=== PATIENT | female | born 1960 | race Caucasian/White ===

== ENCOUNTER 2016-10-24 16:00 | Emergency (ER) | payer MEDICAID ==
[~2016-10-24] VITALS: Wt 66.0 kg
[2016-10-24] MEDS ORDERED: morphine 4 MG/ML VIAL IV STA (16:42)
[2016-10-24] MEDS ORDERED: ONDANSETRON 4 MG INJ IV STA (16:42)
[2016-10-24] MEDS ORDERED: HYD25 PO (16:59)
[2016-10-24] MEDS ORDERED: LABETALOL HCL 20MG INJ IV ONE (17:00)
--- NOTE | 2016-10-24 17:07 | RADRPT ---
PROCEDURE: XR Chest. CLINICAL INDICATION: Hypertension TECHNIQUE: Chest AP portable COMPARISON: 06/15/2009 FINDINGS: The mediastinal structures are unremarkable. There is calcification of the thoracic aorta (consiste nt with atherosclerosis). The heart is normal in size and configuration. The pulmonary vascularity is normal. The lung younger are unremarkable. No consolidation is identified. The pleural spaces are unremarkable. The osseous structures are unremarkable. IMPRESSION: Calcification of the thoracic aorta (consistent with atherosclerosis). No evidence for active cardiopulmonary disease. RPTAT: HGDB .Yonathan Foster MD, MD Date Time Electronically viewed and signed by .Yonathan Foster MD, on 10/24/2016 17:06 .B/
[2016-10-24 17:27] LABS: BASOPHILS % 0.4 % (0.0-2.0); EOSINOPHILS # 0.1 10^3/ul (0.0-0.5); HEMATOCRIT 40.8 % (37.0-47.0); HEMOGLOBIN 13.6 g/dl (12.0-16.0); LYMPHOCYTES % 27.2 % (15.0-51.0); MEAN CORPUSCULAR HGB CONC 33.4 g/dl (32.0-37.0); MEAN CORPUSCULAR VOLUME 86.9 fl (82.0-101.0); MEAN PLATELET VOLUME 8.6 fl (7.4-10.4); MONOCYTE # 0.4 10^3/ul (0.3-0.9); MONOCYTES % 5.8 % (0.0-11.0); NEUTROPHIL # 4.8 10^3/ul (1.6-7.5); NEUTROPHILS % 65.6 % (39.0-77.0); PLATELET COUNT 221 10^3/UL (140-440); RED CELL DISTRIBUTION WIDTH 13.5 % (11.5-14.5); UNCORRECTED WBC 7.3 10^3/ul (4.8-10.8); WHITE BLOOD COUNT 7.3 10^3/ul (4.8-10.8)
[2016-10-24 17:28] LABS: CONDITION 1
[2016-10-24 17:37] LABS: INR 0.9; PROTIME 12.1 Sec (12.2-14.2); PT RATIO 0.9
[2016-10-24 17:39] LABS: CHLORIDE 102 mmol/L (97-110); POTASSIUM 3.4 mmol/L (3.5-5.1); SODIUM 144 mmol/L (135-144)
[2016-10-24 17:42] LABS: ANION GAP 14 (8-16); BLOOD UREA NITROGEN 18 mg/dl (7-20); CARBON DIOXIDE 31 mmol/L (21-31); CREATININE 0.59 mg/dl (0.44-1.00)
[2016-10-24 17:43] LABS: CALCIUM 9.4 mg/dl (8.4-10.2); GLUCOSE 105 mg/dl (70-220)
[2016-10-24] MEDS ORDERED: IOHEXOL 100 ML ONE (17:51)
[2016-10-24] MEDS ORDERED: SOD CHLORIDE 0.9% 100 ML ONE (17:51)
[2016-10-24 17:57] LABS: TROPONIN-I < 0.012 ng/ml (0.00-0.12)
--- NOTE | 2016-10-24 18:52 | RADRPT ---
PROCEDURE: CTA head and neck CLINICAL INDICATION: Hypertension, pain. TECHNIQUE: The study was performed utilizing multidetector CT scanner. Direct thin section axial s ections were obtained through the head and neck after the uneventful administration of 95 cc of 85 O mnipaque-350 nonionic intravenous contrast material. Coronal and sagittal as well as maximal intens ity projection reformations were obtained. 3-D images were made. The images were reviewed on a PACS workstation. One or more the following does reduction techniques were utilized: Automated exposure control, adjustment of themA/ or kV according to patient's size, or use of iterative reconstruction technique. The total CTDIvol is 19.8, 14.99 mGy and the DLP is 580.6 mGy-cm. COMPARISON: No prior studies are available for comparison. FINDINGS: CTA NECK: The origins of the great vessels off the aortic arch are patent without significant stenosis. The c ommon carotid and internal carotid arteries are patent without significant stenosis by NASCET criter ia. Direct measurements of vessel diameters was made in reference to measurements of the distal inte rnal carotid artery diameter. The vertebral arteries are also patent without high-grade stenosis. CTA BRAIN: The internal carotid arteries are patent without significant stenosis. The proximal middle cerebral arteries and anterior cerebral arteries are patent without significant stenosis. There is predomin ant origin of left posterior cerebral artery with hypoplastic left P1 segment. The intracrani al vertebral arteries, basilar artery, and posterior cerebral arteries are also unremarkable without significant stenosis. No aneurysm or vascular malformation is identified. There is a 10 mm irregularly enhancing left thyroid nodule is noted. IMPRESSION: 1. Patent major intracranial and neck arteries. No CTA evidence of dissection or aneurysm. 2. A 10 mm irregularly enhancing left thyroid nodule, correlate with thyroid ultrasound as clinical ly warranted. RPTAT: HFN .Elisa Matos MD, MD Date Time Electronically viewed and signed by .Elisa Matos MD, MD on 10/24/2016 18:52 .N/
--- NOTE | 2016-10-24 19:27 | ERD ---
ER Documentation Chief Complaint Date/Time DATE: 10/24/16 TIME: 19:26 Chief Complaint HEADACHE FOR A FEW WKS. RIGHT CAROTID AREA PULSATING MASS. MILD PAIN NOTED HPI Patient is a 56-year-old female with hypertension who presents with right-sided neck pain and headache. She has high blood pressure. She had a pulsating mass in her right neck. She has had 2 weeks of symptoms. Today the symptoms were worse. She has had no treatment as of yet. She is taking blood pressure medicines currently. Upon review of old medical records the patient one previous visit to the ER in 2008. She does not remember the name of her primary doctor. ROS All systems reviewed and are negative except as per history of present illness. Medications Home Meds Reported Medications Hydrochlorothiazide* (Hydrochlorothiazide*) 25 Mg Tab, 25 MG PO DAILY, #30 TAB 10/24/16 Allergies Allergies: Coded Allergies: No Known Allergy (Verified , 10/24/16) PMhx/Soc Medical and Surgical Hx: pt denies Medical Hx, pt denies Surgical Hx History of Surgery: No Anesthesia Reaction: No Hx Neurological Disorder: No Hx Respiratory Disorders: No Hx Cardiac Disorders: Yes (htn) Hx Psychiatric Problems: No Hx Miscellaneous Medical Probl: No Hx Alcohol Use: No Hx Substance Use: No Hx Tobacco Use: No Smoking Status: Never smoker FmHx Family History: diabetes Physical Exam Vitals Vital Signs Date Time Temp Pulse Resp B/P Pulse Ox O2 Delivery O2 Flow Rate FiO2 10/24/16 19:40 62 18 139/93 100 Room Air 10/24/16 17:30 60 18 142/89 100 Room Air 10/24/16 17:00 Nasal Cannula 2 10/24/16 16:04 98.7 70 20 227/107 100 Physical Exam Const: No acute distress Head: Atraumatic Eyes: Normal Conjunctiva ENT: Normal External Ears, Nose and Mouth. Neck: Full range of motion..~ No meningismus. There is a pulsating mass at the right neck without bruit Resp: Clear to auscultation bilaterally Cardio: Regular rate and rhythm, no murmurs Abd: Soft, non tender, non distended. Normal bowel sounds Skin: No petechiae or rashes Back: No midline or flank tenderness Ext: No cyanosis, or edema Neur: Awake and alert Psych: Normal Mood and Affect Result Diagram: 10/24/16 1710 10/24/16 1710 Results 24 hrs Laboratory Tests Test 10/24/16 17:10 Activated Partial Thromboplast Time 30.0Sec Anion Gap 14 Basophils # 0.010^3/ul Basophils % 0.4% Blood Urea Nitrogen 18mg/dl Calcium Level 9.4mg/dl Carbon Dioxide Level 31mmol/L Chloride Level 102mmol/L Creatinine 0.59mg/dl Eosinophils # 0.110^3/ul Eosinophils % 1.0% Glucose Level 105mg/dl Hematocrit 40.8% Hemoglobin 13.6g/dl INR International Normalized Ratio 0.90 Lymphocytes # 2.010^3/ul Lymphocytes % 27.2% Mean Corpuscular Hemoglobin 29.0pg Mean Corpuscular Hemoglobin Concent 33.4g/dl Mean Corpuscular Volume 86.9fl Mean Platelet Volume 8.6fl Monocytes # 0.410^3/ul Monocytes % 5.8% Neutrophils # 4.810^3/ul Neutrophils % 65.6% Nucleated Red Blood Cells # 0.010^3/ul Nucleated Red Blood Cells % 0.0/100WBC Platelet Count 60183^3/UL Potassium Level 3.4mmol/L Prothrombin Time 12.1Sec Prothrombin Time Ratio 0.9 Red Blood Count 4.7010^6/ul Red Cell Distribution Width 13.5% Sodium Level 144mmol/L Troponin I < 0.012ng/ml White Blood Count 7.310^3/ul Current Medications Medications (Trade) Dose Ordered Sig/Marina Route PRN Reason Start Time Stop Time Status Last Admin Dose Admin Ondansetron HCl (Zofran Inj) 4 mg ONCE STAT IV 10/24/16 16:42 10/24/16 16:44 DC 10/24/16 17:31 Morphine Sulfate (morphine) 4 mg ONCE STAT IV 10/24/16 16:42 10/24/16 16:44 DC 10/24/16 17:32 Labetalol HCl (Labetalol) 20 mg ONCE ONCE IV 10/24/16 17:00 10/24/16 17:01 DC IV Flush 10 ml 10 ml STK-MED ONCE .ROUTE 10/24/16 17:51 10/24/16 17:52 DC 10/24/16 18:23 Sodium Chloride 100 ml @ ud STK-MED ONCE .ROUTE 10/24/16 17:51 10/24/16 17:52 DC 10/24/16 18:23 Iohexol (Omnipaque) 100 ml @ [facility] ONCE .ROUTE 10/24/16 17:51 10/24/16 17:52 DC 10/24/16 18:23 Procedures/MDM EKG read by me: Rate/Rhythm: Regular rate and rhythm at a rate of 65 Intervals: Normal Impression: No evidence of ischemia or arrhythmia CT of the head and neck negative per radiology. Patient is a 56-year-old female with hypertension who presents with headache and right-sided neck pain as well as pulsating mass in the right neck. CTA was done to rule out carotid artery aneurysm and this was negative. I believe this may be variant anatomy with a carotid it is visible at the right neck. The patient is otherwise well-appearing and has no neurologic findings. I believe outpatient management is appropriate at this point. I did speak with Dr. Leal and we felt that outpatient management is now appropriate. The patient can return for any worsening symptoms. Her blood pressure was much improved with pain medicines. At this point I doubt stroke, intracranial hemorrhage, intracranial mass, or carotid artery aneurysm or dissection. Critical Care: Time: 35 minutes excluding all billable procedures. Treatments/Evaluations: Close monitoring and treatment of unstable vital signs, cardiorespiratory, and neurologic status, while maintaining tight balance of fluid, respiratory, and cardiac interventions. Departure Diagnosis: Primary Impression: Hypertension Hypertension type: essential hypertension Qualified Code: I10 - Essential hypertension Additional Impression: Headache Headache type: unspecified Headache chronicity pattern: acute headache Intractability: not intractable Qualified Code: R51 - Acute nonintractable headache, unspecified headache type Condition: Fair Patient Instructions: Self-Care for Headaches, High Blood Pressure ( Hypertension) Referrals: Your doctor Additional Instructions: Llame al doctor MAANA y efrain michelle HALEY PARA DENTRO DE 1-2 CHO.Dgale a la secretaria que nosotros le instruimos hacer esta haley.Avise o llame si basurto condicin se empeora antes de la haley. Regresa aqui si peor o no mejor. BAHMAN GUZMAN MD Oct 24, 2016 19:26
[2016-10-24 19:40] VITALS: BP 139/93; PULSE 62; RESP 18
== END 2016-10-24 20:03 | disposition home or self-care (01) ==
LOC: E/R 16:00
DX: I10 Essential (primary) hypertension (principal); R11.0 Nausea
CPT/HCPCS: 36415; 70496; 70498; 71010; 80048; 84484; 85025; 85610; 85730; 93005; 96374; 96375; J2270; J2405; Q9967; Z7502; Z7610

== ENCOUNTER 2017-04-21 07:18 | Emergency (ER) | payer MEDICAID ==
[~2017-04-21] VITALS: Ht 160 cm; Wt 66.0 kg
[~2017-04-21 07:18] MED LIST: HYD25 PO
[2017-04-21 07:20] VITALS: Ht 160 cm; Wt 66.0 kg
[2017-04-21 08:10] LABS: ADD UMIC YES; UR ASCORBIC ACID NEGATIVE (NEGATIVE); UR BACTERIA FEW /HPF (NONE SEEN); UR BILIRUBIN (Dip) NEGATIVE (NEGATIVE); UR BLOOD (Dip) 3+ mg/dL (NEGATIVE); UR CLARITY CLOUDY (CLEAR); UR COLOR RED (YELLOW); UR GLUCOSE (Dip) 1+ mg/dL (NEGATIVE); UR KETONES (Dip) NEGATIVE (NEGATIVE); UR LEUKOCYTE ESTERASE (Dip) 2+ Leu/ul (NEGATIVE); UR NITRITE (Dip) NEGATIVE (NEGATIVE); UR RBC > 182 /HPF (0-5); UR SQUAMOUS EPITHELIAL CELL FEW /HPF (FEW); UR TOTAL PROTEIN (Dip) 2+ mg/dl (NEGATIVE); UR UROBILINOGEN (Dip) NEGATIVE (NEGATIVE)
[2017-04-21] MEDS ORDERED: CEFTRIAXONE 2 GM INJ IM ONE (08:30)
[2017-04-21] MEDS ORDERED: NITR-58 PO (08:30)
[2017-04-21] MEDS ORDERED: PHEN-537 PO (08:31)
--- NOTE | 2017-04-21 08:35 | ERD ---
ER Documentation Chief Complaint Date/Time DATE: 04/21/17 TIME: 08:33 Chief Complaint dysuria and hematuria since last night at 11pm HPI This is a 57-year-old female, with past medical history for hypertension, presenting to the emergency department with dysuria and hematuria 2 days. Patient states she developed symptoms last night around 11 PM. Patient states she has burning and stinging sensation with urination. Patient also noticed hematuria last night. Patient also has pelvic pain and pressure that she describes as constant. No fevers or chills. No difficulty urinating. No urinary frequency or urgency. No vaginal bleeding or vaginal discharge. Patient rating pain 8/10 to suprapubic region. No vomiting or diarrhea. No constipation. Last bowel movement was yesterday. Patient states she takes hydrochlorothiazide for hypertension however did not take that this morning. ROS All systems reviewed and are negative except as per history of present illness. Medications Home Meds Active Scripts Phenazopyridine Hcl* (Pyridium*) 100 Mg Tab, 100 MG PO TID Y for URINARY PAIN, # 8 TAB Prov:STEPHIE ARROYO NP 04/21/17 Nitrofurantoin Monohyd Macrocr* (Macrobid*) 100 Mg Capsr, 100 MG PO BID for 5 Days, CAP Prov:STEPHIE ARROYO NP 04/21/17 Reported Medications Hydrochlorothiazide* (Hydrochlorothiazide*) 25 Mg Tab, 25 MG PO DAILY, #30 TAB 10/24/16 Allergies Allergies: Coded Allergies: No Known Allergy (Verified , 04/21/17) PMhx/Soc History of Surgery: Yes (hysterectomy) Anesthesia Reaction: No Hx Neurological Disorder: No Hx Respiratory Disorders: No Hx Cardiac Disorders: Yes (hypertension) Hx Psychiatric Problems: No Hx Miscellaneous Medical Probl: No Hx Alcohol Use: No Hx Substance Use: No Hx Tobacco Use: No Smoking Status: Never smoker Physical Exam Vitals Vital Signs Date Time Temp Pulse Resp B/P Pulse Ox O2 Delivery O2 Flow Rate FiO2 04/21/17 09:14 97.9 84 18 152/76 99 04/21/17 07:20 98.3 87 18 186/91 99 Physical Exam Const: Alert, [id number] Head: Atraumatic Eyes: Normal Conjunctiva ENT: Normal External Ears, Nose and Mouth. Neck: Full range of motion..~ No meningismus. Resp: Clear to auscultation bilaterally Cardio: Regular rate and rhythm, no murmurs Abd: Soft, non distended. Normal bowel sounds, suprapubic tenderness to palpation. No lower abdominal pain tenderness. No upper abdominal pain tenderness. Negative [place] sign. Negative rebound tenderness. Skin: No petechiae or rashes Back: No midline or flank tenderness. No CVA tenderness Ext: No cyanosis, or edema Neur: Awake and alert Psych: Normal Mood and Affect Results 24 hrs Laboratory Tests Test 04/21/17 07:38 Urine Color RED Urine Clarity CLOUDY Urine pH 7.0 Urine Specific [place] 1.010 Urine Ketones NEGATIVEmg/dL Urine Nitrite NEGATIVEmg/dL Urine Bilirubin NEGATIVEmg/dL Urine Urobilinogen NEGATIVEmg/dL Urine Leukocyte Esterase 2+Baron/ul Urine Microscopic RBC > 182/HPF Urine Microscopic WBC 105/HPF Urine Squamous Epithelial Cells FEW/HPF Urine Bacteria FEW/HPF Urine Hemoglobin 3+mg/dL Urine Glucose 1+mg/dL Urine Total Protein 2+mg/dl Current Medications Medications (Trade) Dose Ordered Sig/Marina Route PRN Reason Start Time Stop Time Status Last Admin Dose Admin Ceftriaxone Sodium (Rocephin) 2 gm ONCE ONCE IM 04/21/17 08:30 04/21/17 08:31 DC 04/21/17 08:46 Lidocaine (Xylocaine 1% (Mdv) 20 ml) 20 ml ONCE ONCE SC 04/21/17 09:00 04/21/17 09:01 DC 04/21/17 08:47 Procedures/MDM MDM: 57-year-old female presents the emergency department with dysuria and hematuria since last night at 11 PM. Patient is afebrile upon arrival to ED. Patient is hypertensive however states she has history of hypertension and has not taken her medication today. Patient took her oral medication while in the ED. Patient's urinalysis shows 2+ leukocyte esterase with greater than 182 RBCs and 105 WBCs. This likely represents an acute UTI. Patient denies flank pain. No fever or tachycardia. Patient given 2 g Rocephin IM while in the ED. Patient remained stable throughout ED visit. No active vomiting. Low suspicion for pyelonephritis or nephrolithiasis. Patient likely has acute UTI. Patient is appropriate for outpatient management and will be given prescription for Macrobid and Pyridium. Instructed patient to follow-up with primary care provider in the next week for reassessment. Return to ED for any high fever, chest pain, difficulty breathing, shortness breath, wheezing, vomiting, diarrhea , abdominal pain or any new or worsening symptoms. Patient verbalizes understanding. All questions answered at discharge. Israeli translation used during this encounter. Departure Diagnosis: Primary Impression: UTI (urinary tract infection) Urinary tract infection type: acute cystitis Hematuria presence: with hematuria Qualified Code: N30.01 - Acute cystitis with hematuria Condition: Stable Patient Instructions: Understanding Urinary Tract Infections (UTIs) Referrals: COMMUNITY CLINICS YOU HAVE RECEIVED A MEDICAL SCREENING EXAM AND THE RESULTS INDICATE THAT YOU DO NOT HAVE A CONDITION THAT REQUIRES URGENT TREATMENT IN THE EMERGENCY DEPARTMENT. FURTHER EVALUATION AND TREATMENT OF YOUR CONDITION CAN WAIT UNTIL YOU ARE SEEN IN YOUR DOCTORS OFFICE WITHIN THE NEXT 1-2 DAYS. IT IS YOUR RESPONSIBILITY TO MAKE AN APPOINTMENT FOR FOLOW-UP CARE. IF YOU HAVE A PRIMARY DOCTOR --you should call your primary doctor and schedule an appointment IF YOU DO NOT HAVE A PRIMARY DOCTOR YOU CAN CALL OUR PHYSICIAN REFERRAL HOTLINE AT IF YOU CAN NOT AFFORD TO SEE A PHYSICIAN YOU CAN CHOSE FROM THE FOLLOWING [facility] [address] [facility] [address] [facility] [address]. [facility] [address] [facility] [facility] [address] [facility] [facility] [address] [facility] [facility] [address] [facility] [facility]. [address] [facility]. [facility] YOU HAVE RECEIVED A MEDICAL SCREENING EXAM AND THE RESULTS INDICATE THAT YOU DO NOT HAVE A CONDITION THAT REQUIRES URGENT TREATMENT IN THE EMERGENCY DEPARTMENT. FURTHER EVALUATION AND TREATMENT OF YOUR CONDITION CAN WAIT UNTIL YOU ARE SEEN IN YOUR DOCTORS OFFICE WITHIN THE NEXT 1-2 DAYS. IT IS YOUR RESPONSIBILITY TO MAKE AN APPOINTMENT FOR FOLOW-UP CARE. IF YOU HAVE A PRIMARY DOCTOR --you should call your primary doctor and schedule and appointment IF YOU DO NOT HAVE A PRIMARY DOCTOR YOU CAN CALL OUR PHYSICIAN REFERRAL HOTLINE AT . IF YOU CAN NOT AFFORD TO SEE A PHYSICIAN YOU CAN CHOSE FROM THE FOLLOWING [facility] INSTITUTIONS: [facility] [address] [place] [address] [facility] [address] [place] [address] [facility] [address] [place] [address] Additional Instructions: Call your primary care doctor TOMORROW for an appointment during the next 2-3 days.See the doctor sooner or return here if your condition worsens before your appointment time. Return to ED for any high fever, chest pain, difficulty breathing, shortness breath, wheezing, vomiting, diarrhea, abdominal pain or any new or worsening symptoms. STEPHIE ARROYO NP Apr 21, 2017 08:35
[2017-04-21] MEDS ORDERED: LIDOCAINE 1% (MDV) 20 ML INJ SC ONE (09:00)
[2017-04-21 09:14] VITALS: BP 152/76; PULSE 84; RESP 18; TEMP 97.9
== END 2017-04-21 09:15 | disposition home or self-care (01) ==
LOC: FTE 07:18
DX: N30.01 Acute cystitis with hematuria (principal); I10 Essential (primary) hypertension
CPT/HCPCS: 81001; 96372; J0696; Z7502

== ENCOUNTER 2018-04-29 21:28 | Emergency (ER) | END 2018-04-30 01:34 | disposition home or self-care (01) ==